=== PATIENT | female | born 1985 | race Caucasian/White ===

== ENCOUNTER → 2017-11-04 | Outpatient (CLI) | payer OTHER ==
[~2017-11-04] MED LIST: FLUT0.15 NAE; MISCCAP80 PO; MONT1TAB3 PO; MULT-506 PO; OMEP10CA4 PO; VNTHFA/IN INH
--- NOTE | 2017-11-04 10:54 | DIAGNOSTIC IMAGING REPORT ---
Study: Fusion CT sinuses. HISTORY: Sinus pain. Pressure Findings.: Complete soft tissue opacification right maxillary sinus. Expansion of the medial right maxillary sinus wall to encompass a considerable component of the right nasal canal and right ethmoid sinuses. Displacement of the nasal septum to the left. No evidence for extension to the right orbit. Evidence for a contiguous extension to a posterior right maxillary periapical abscess involving a posterior molar. This creates a defect of 8 mm in the inferior right maxillary sinus wall. Possibility of a phlegmon/abscess/polypoid lesion originating from the maxilla with extension to the sinus structures must be considered. In addition, there is the presence of several caries within the maxillary dentition as well as a smaller left posterior maxillary periapical abscess. The right ostiomeatal unit is entirely occluded. the left ostiomeatal unit is patent. The sphenoid and frontal sinuses are remarkable only for minimal mucosal thickening. There is potential extension of the soft tissue involving the right maxillary and right ethmoid sinuses to the medial right frontal sinus. Coronal reformatted images 30 suggests the possibility of a developing destructive change of the right medial cribriform plate. IMPRESSION: 1. Complete soft tissue opacification of the right maxillary sinus with expansile characteristics displacing the medial wall the right maxillary sinus towards the midline 2. Soft tissue component extends to the posterior right maxilla where it is contiguous with a 8 mm periapical abscess of a posterior right molar. 3. There is also superior extension to the right ethmoid sinus with potential early erosive changes medial aspect right cribriform plate. 4. Additional caries and periapical abscesses of the dentition although a significant associated soft tissue component other than that described does not appear to be present. 5. No evidence for destructive or erosive change to the orbits. 6. The appearance is highly suggestive of an expansile and/or destructive phlegmon potentially arising from the right maxilla/periapical abscess, versus the possibility of expansile polypoid changes arising from the maxilla. 7. The possibility of early destructive changes involving the right cribriform plate are major concern with ENT follow-up recommended Electronically signed by: Dariel James M.D. 11/04/2017 10:53 AM Dictated Date/Time: 11/04/2017 10:41 AM
[2017-11-04 14:30] LABS: BASO % 0.5 %; BASO ABS # 0.02 K/uL (0-0.2); COMPLETE YES; EOS % 0.8 %; IG% 0.3 %; LYMPH % 45.8 %; LYMPH ABS # 1.69 K/uL (1.2-3.4); MEAN CELL VOLUME 78.9 fL (80-100); MEAN CORPUSCULAR HEMOGLOBIN 25.8 pg (25-34); MEAN CORPUSCULAR HGB CONC 32.8 g/dl (32-36); MEAN PLATELET VOLUME 10.1 fL (7.4-10.4); MONO % 11.7 %; NEUT % 40.9 %; PLATELET COUNT 217 K/uL (130-400); RED BLOOD COUNT 5.07 M/uL (4.2-5.4); WHITE BLOOD COUNT 3.69 K/uL (4.8-10.8)
[2017-11-04 14:37] LABS: INR 0.9 (0.9-1.1); PROTHROMBIN TIME (PATIENT) 9.6 SECONDS (9.0-12.0)
== END | disposition home or self-care (01) ==
LOC: C.CTS 10:20
DX: Z01.818 Encounter for other preprocedural examination (principal); J32.9 Chronic sinusitis, unspecified

== ENCOUNTER → 2017-11-12 | Day surgery (SDC) | payer BC, OTHER ==
[2017-11-10 15:20] VITALS: Ht 170.2 cm; Wt 101.8 kg
[~2017-11-12] VITALS: Ht 170.2 cm; Wt 101.8 kg
[~2017-11-12] MED LIST changes: +ACETAMINOPHEN 1000 MG/100 ML IV IV ONE; +ATROPINE SULFATE 0.1 MG/ML 5ML SYR IV PRN; +CLINDAMYCIN 900MG IV SCH; +DEXAMETHASONE SOD INJ 4 MG/ML VIAL ONE; +EpHEDrine SULFATE INJ 50 MG/ML AMP IV PRN; +EpINEphrine INJ 1MG/ML AMP 1 MG/ML AMP ONE; +FENTANYL CITRATE INJ 50 MCG/1 ML 2 ML VIAL IV PRN; +FENTANYL CITRATE INJ 50 MCG/1 ML 2 ML VIAL ONE; +GLYCOPYRROLATE INJ 0.2 MG/ML VIAL ONE; +HYDROCODONE/ACETAMOPHEN 5/325MG TAB PO PRN; +HYDROmorphone INJ 1 MG/ML SYR IV PRN; +LACTATED RINGER'S 1000ML 1,000 ML IV SCH; +LIDOCAINE 4% MPF SOAK 5 ML = 1 DOSE TOP ONE; +LIDOCAINE HCL 2% 2 ML VIAL (20MG/ML) ONE; +LIDOCAINE/EPINEPHRINE 1% INJ 50 ML VIAL ONE; +MIDAZOLAM HCL 1 MG/ML 2ML VIAL ONE; +NEOSTIGMINE METHYLSULFATE 5 MG/5 ML SYR ONE; +ONDANSETRON INJ 2 MG/ML 2 ML VIAL IV PRN; +ONDANSETRON INJ 2 MG/ML 2 ML VIAL ONE; +OXYMETAZOLINE HCL 0.05% NA SPR 15 ML BTL PRN; +OXYMETAZOLINE HCL 0.05% NA SPR 15 ML BTL SCH; +PROPOFOL IV EMULSION 10 MG/ML 20 ML VIAL IV ONE; +SCOPOLAMINE 1.5 MG TDSY TD ONE
--- NOTE | 2017-11-12 10:11 | History & Physical Bridge - [place] ---
H&P Re-Evaluation Bridge Note: I have examined the patient, reviewed the History & Physical and in the interval since the performance of the History & Physical I have noted the following changes of clinical significance: No changes noted
--- NOTE | 2017-11-12 12:01 | [facility] Operative Report ---
Operative Report Operative Date Nov 12, 2017. Pre-Operative Diagnosis Chronic Sinusitis; Nasal Septal Deviation Post-Operative Diagnosis Same Procedure(s) Performed Right Sided Image-Guided Endoscopic Sinus Surgery, Septoplasty Surgeon Dr. Schroeder Chef Head Surgeon(s) None Estimated Blood Loss 75 mL Findings 1. MODERATE RIGHT SEPTAL DEVIATION 2. SEVERELY INFLAMED RIGHT MAXILLARY AND ETHMOID SINUSES WITH PAPILLOMATOUS APPEARING TISSUE AND PURULENCE WITHIN THE MAXILLARY SINUS 3. MILD MUCOSAL THICKENING RIGHT FRONTAL AND SPHENOID SINUSES 4. CHRONIC SINUSITIS ON FROZEN SECTION DX OF RIGHT SINONASAL MASS AND RIGHT MAXILLARY SINUS CONTENTS Specimens A. Right Sinonasal Mass Possible Inverted Papilloma Versus Malignancy - out @ 1100, sent for FROZEN B. Right Maxillary Sinus Contents - out @ 1103, sent for FROZEN C. Right Sinonasal Mass Possible Inverted Papilloma Versus Malignancy - sent as permanent specimen D. Right Maxillary Sinus Contents - sent as permanent specimen I attest to the content of the Intraoperative Record and any orders documented therein. Any exceptions are noted below.
--- NOTE | 2017-11-12 12:04 | Discharge Instructions ---
Discharge Instructions Date of Service Nov 12, 2017. Admission Reason for Admission: Chronic Sinusitis, Nasal Septal Deviation Discharge Discharge Diagnosis / Problem: SAME Discharge Goals Goal(s): Therapeutic intervention Activity Recommendations Activity Limitations: as noted below LIGHT ACTIVITY AND NO NOSE BLOWING FOR 2 WEEKS; NO DRIVING WHILE ON NORCO . Current Hospital Diet Patient's current hospital diet: Discharge Diet Recommended Diet: Regular Diet Procedures Procedures Performed: Right Sided Image-Guided Endoscopic Sinus Surgery, Septoplasty Pending Studies Studies pending at discharge: no Medical Emergencies . Who to Call and When: Medical Emergencies: If at any time you feel your situation is an emergency, please call 911 immediately. . Non-Emergent Contact Non-Emergency issues call your: Surgeon . . "Provider Documentation" section prepared by Pipe Schroeder. . VTE Core Measure Inpt VTE Proph given/why not?: SCD's
--- NOTE | 2017-11-12 13:00 | Anesthesia Progress Nt - [facility] ---
Anesthesia Post Op Note Date & Time Nov 12, 2017 at 13:00 Vital Signs Pain Intensity: 5 Vital Signs Past 12 Hours Date Time Temp Pulse Resp B/P (MAP) Pulse Ox O2 Delivery O2 Flow Rate FiO2 11/12/17 12:11 36.0 97 16 131/74 100 Humidified Oxygen 6 Mask 11/12/17 09:19 81 18 126/86 (99) 100 Room Air Notes Mental Status: alert / awake / arousable, participated in evaluation Pt Amnestic to Procedure: Yes Nausea / Vomiting: adequately controlled Pain: adequately controlled Airway Patency, RR, SpO2: stable & adequate BP & HR: stable & adequate Hydration State: stable & adequate Anesthetic Complications: no major complications apparent
--- NOTE | 2017-11-12 13:15 | OPERATIVE REPORT ---
DATE OF OPERATION: 11/12/2017 PREOPERATIVE DIAGNOSES: 1. Right septal deviation. 2. Right chronic pansinusitis. POSTOPERATIVE DIAGNOSES: 1. Right septal deviation. 2. Right chronic pansinusitis. PROCEDURES: [employer] fusion image guided endoscopic sinus surgery consisting of: 1. Right frontal sinusotomy. 2. Right complete ethmoidectomy. 3. Right maxillary antrostomy with tissue removal. 4. Right sphenoidotomy. 5. Septoplasty. SURGEON: Pipe Schroeder MD ANESTHESIA: General endotracheal. ESTIMATED BLOOD LOSS: 75 mL. FINDINGS: 1. Severe inflammation involving the right maxillary and ethmoid sinuses with papillomatous appearing tissue within the right maxillary sinus as well as mild purulence within the right maxillary sinus. 2. Mild mucosal thickening involving the right frontal and sphenoid sinuses. 3. Chronic sinusitis on frozen section diagnosis. 4. Moderate right septal deviation. SPECIMENS: Right sinonasal mass and right maxillary sinus contents for both frozen and permanent pathological assessment. COMPLICATIONS: None. INDICATIONS: The patient is a 32-year-old female who approximately 9 months ago underwent wisdom tooth extraction and developed sinusitis postoperatively, which was likely from an odontogenic source. Despite numerous rounds of antibiotics and steroids, patient continued to have symptomatology and a posttreatment fusion CT scan of sinuses reveals right pansinusitis along with right septal deviation. There was expansion of the medial wall of the maxillary sinus as well as possible erosion of the medial aspect of the cribriform plate, suspicious for possible malignancy versus inverting papilloma. She presents for the above-mentioned procedure on an outpatient elective basis. DESCRIPTION OF PROCEDURE: After informed consent had been obtained from patient, patient was wheeled to the operating room and placed on the operating room table in the supine position. Monitors were placed. After induction of general endotracheal anesthesia, patient was prepped in the usual fashion for image guided sinus surgery. The Primo Round fusion headset was placed over the forehead and was registered, calibrated, and verified and used throughout the case. Lidocaine and epinephrine pledgets were placed in the bilateral nasal cavities and pressure applied. Pledgets were removed. The septum was deviated to the right moderately which would inhibit the endoscopic sinus surgery and therefore septoplasty was first performed. The nasal septum was injected with 1% lidocaine with 1:100,000 epinephrine, thereby performing hydrodissection of the mucoperichondrial mucoperiosteal flaps bilaterally. Lidocaine and epinephrine pledgets were then placed in the bilateral nasal cavities and pressure applied. Pledgets were removed. A #15 scalpel was then used to make a left Leonel incision, through which the left-sided mucoperichondrial mucoperiosteal flap was elevated. A #15 scalpel was then used to incise the quadrangular cartilage with care to preserve a 1.5 cm dorsal and caudal strut and the right-sided mucoperichondrial mucoperiosteal flap was elevated through this cartilaginous incision. A Amandeep swivel knife was then used to remove the deviated portions of quadrangular cartilage. A V-shaped osteotome, mallet, and Suhas forceps were then used to remove the bony septal spur which was impinging on the airway more posteriorly and inferiorly. The septum was at midline. The septal cavity was suctioned. The left Buchtel incision was closed with several simple interrupted 4-0 chromic sutures. A 4-0 plain gut suture and a Omari needle was then used to perform a quilting stitch of the mucoperichondrial mucoperiosteal flaps bilaterally to help prevent septal hematoma. The middle turbinate and lateral nasal wall were then injected with 1% lidocaine with 1:100,000 epinephrine. It appeared as if there was a sinonasal mass involving the right middle meatus and patient's right eye was palpated and there appeared to be transmission of the palpated contents, suggesting possible dehiscence of the lamina papyracea. After the anesthetic, multiple pieces of papillomatous/polypoid tissue was taken using straight Cy-Cut forceps and sent for both frozen and permanent pathological assessment. Using the image guided system and a maxillary sinus curved suction, the maxillary sinus was entered. There was a mild amount of purulence that was completely evacuated from the sinus. Using image guidance and powered instrumentation, a right maxillary antrostomy was performed. There was very papillomatous looking tissue involving the entire maxillary sinus and a lot of this tissue was removed and sent for both frozen and permanent pathological assessment. I waited for the frozen section diagnosis before proceeding in case this represented malignancy versus inverting papilloma, but fortunately this came back as only chronic sinusitis. Therefore, an uncinectomy was performed using powered instrumentation and backbiting forceps. A complete ethmoidectomy was performed using powered instrumentation. A transethmoid approach to the sphenoid sinus was then undertaken and the sphenoid ostium was enlarged medially and inferiorly using powered instrumentation. Using a curved frontal sinus suction, the right frontal sinus was cannulated. There was polypoid tissue involving the sinus and therefore this was removed using powered instrumentation. Due to the possible bony erosion of the cribriform plate medially, I decided not to perform balloon sinuplasty of the right frontal sinus. There was only purulence within the maxillary sinus. There was severe polypoid and papillomatous tissue involving the ethmoid sinus and maxillary sinus and only mild mucosal thickening involving the right frontal and sphenoid sinuses. The sinonasal cavities and nasopharynx were then suctioned. Merogel was then placed into the right ethmoid sinus/middle meatus. An orogastric tube was placed and the stomach suctioned free of air and stomach contents. This marked the end of the case. The patient tolerated the procedure well and there were no apparent complications. The patient was extubated and transferred to recovery room in stable condition. I attest to the content of the Intraoperative Record and any orders documented therein. Any exception s are noted below.
[2017-11-12 13:51] VITALS: BP 118/81; PULSE 69; O2SAT 97
== END | disposition home or self-care (01) ==
LOC: X.SURG 08:55
DX: J34.2 Deviated nasal septum (principal); J01.41 Acute recurrent pansinusitis; J45.909 Unspecified asthma, uncomplicated; K21.9 Gastro-esophageal reflux disease without esophagitis; K44.9 Diaphragmatic hernia without obstruction or gangrene; E66.9 Obesity, unspecified; Z90.49 Acquired absence of other specified parts of digestive tract; Z90.89 Acquired absence of other organs; Z82.49 Family history of ischemic heart disease and other diseases of the circulatory system; Z82.5 Family history of asthma and other chronic lower respiratory diseases; Z82.2 Family history of deafness and hearing loss; Z80.0 Family history of malignant neoplasm of digestive organs; Z80.3 Family history of malignant neoplasm of breast; Z80.8 Family history of malignant neoplasm of other organs or systems; Z98.51 Tubal ligation status; Z92.241 Personal history of systemic steroid therapy